=== PATIENT | male | born 1960 | race Caucasian/White ===

== ENCOUNTER 2019-12-09 16:04 | Outpatient (REF) | payer OTHER, SELFPAY | END 2019-12-09 16:05 | disposition home or self-care (01) | LOC: HO.LAB 16:04 | PROVIDERS: PCP Internal Medicine Geriatric Medicine; Visit Provider Internal Medicine | DX: Z20.828 Contact with and (suspected) exposure to other viral communicable diseases (principal) | CPT/HCPCS: 87635 ==

== ENCOUNTER 2020-02-23 12:04 | Outpatient (REF) | payer OTHER, SELFPAY | END 2020-02-23 12:05 | disposition home or self-care (01) | LOC: HO.HAP 12:04 | PROVIDERS: Visit Provider Internal Medicine Geriatric Medicine | DX: Z46.1 Encounter for fitting and adjustment of hearing aid (principal) | CPT/HCPCS: V5266 ==

== ENCOUNTER 2020-04-21 12:43 | Outpatient (REF) | payer OTHER, SELFPAY ==
--- NOTE | 2020-04-21 16:33 | MHC.AU.P13 ---
Adult Audiological Evaluation Date of Visit: 04/21/20 Mortician Investigator Used: Brought friend to help with Malaysian translation Reason for Appointment: Audiological re-evaluation due to concern for decreased hearing. Patient has a long-standing history of bilateral sensorineural hearing loss. He notes that he had cerumen removal completed two days ago at an ENT office, but still feels like he isn't hearing as well. He denies any changes to his medical history. [place] [facility] [place] Moderate to severe sensorineural hearing loss bilaterally. Ear History: Family History of Hearing Loss?: Yes Bothersome Tinnitus/Ringing/Noises in Ears: Both Ears Medical History: Medical History: Dizziness or Unsteadiness, High Blood Pressure Hearing Instrument History- Right Ear: Museum Host/Hostess: OtNetwork Hardware Resale Model: Opn 3 miniRITE Serial Number: [id number] Battery Size: 312 Repair Warranty: 11/11/2018 Loss and Damage Warranty: 11/11/2018 Dispensed By: [facility] Date of Fittin10/18/2016 Hearing Instrument History- Left Ear: Museum Host/Hostess: Oticon Model: Opn 3 miniRITE Serial Number: [id number] Battery Size: 312 Warranty: 11/11/2018 Loss and Damage Warranty: 11/11/2018 Dispensed By: [facility] Date of Fittin10/18/2018 Otoscopy: Right Ear: Unremarkable Left Ear: Unremarkable Tympanometry: Tympanometry performed due to: Patient reports sensation that ears are blocked/plugged. Right Ear: Normal Middle Ear System (Type A) Left Ear: Normal Middle Ear System (Type A) Hearing Evaluation: Transducer(s) Used: Insert Earphones, Bone Conduction Method: Conventional Audiometry Stimuli Used: Pure Tones Right Ear: Description of Hearing: Moderate sloping to severe sensorineural hearing loss from 125-8000 Hz. Left Ear: Description of Hearing: Moderate sloping to severe sensorineural hearing loss from 125-8000 Hz. Speech Recognition Threshold (SRT): Method Used: Recorded Lists Stimuli Used: Spondee Words Right Ear: 75 dBHL Left Ear: 75 dBHL Word Discrimination: Method: Recorded Lists Word Lists Used: Lista Bisil?bica (Malaysian) Right Ear: 88% at 95 dBHL Left Ear: 88% at 95 dBHL Comparison: Compared to the most recent evaluation: Hearing is stable. Recommendations: Audiological re-evaluation if changes are noted. Audiological re-evaluation in one year. Hearing aid maintenance performed today. Diagnosis: Primary Diagnosis: H90.3 Bilateral Sensorineural Hearing Loss Secondary Diagnosis: Services Performed: Comprehensive Audiological Evaluation (CPT 09959) Tympanometry (CPT 72538) Signature: Provider: Bernardo Rodriguez, CCC-A
== END 2020-04-21 12:44 | disposition home or self-care (01) ==
LOC: HO.SH 12:43
PROVIDERS: Visit Provider Internal Medicine Geriatric Medicine
DX: H90.3 Sensorineural hearing loss, bilateral (principal)
CPT/HCPCS: 92557; 92567; 92593; 99499; V5266

== ENCOUNTER 2020-05-17 10:15 | Outpatient (REF) | payer OTHER, SELFPAY ==
--- NOTE | ~2020-05-17 | US_ITS ---
EXAMINATION: US RETROPERITONEAL LIMITED (RENAL ONLY) CLINICAL INFORMATION: Nephrolithiasis. COMPARISON: Renal only ultrasound dated 10/12/2019. CT abdomen and pelvis without contrast dated 09/19/2019. TECHNIQUE: Real-time imaging of the kidneys. FINDINGS: RIGHT KIDNEY: 11.7 x 7.1 x 8.2 cm (SAG x AP x TRV). The kidney is normal in size, contour, and echogenicity. Renal cortical thickness is normal. There is are 2 stones in the lower pole measuring 3 mm and 4 mm. No focal parenchymal lesions or hydronephrosis. LEFT KIDNEY: 11.5 x 6.4 x 6.5 cm (SAG x AP x TRV). The kidney is normal in size, contour, and echogenicity. Renal cortical thickness is normal. There are 2 cysts in the lower pole, a 2 cm exophytic cyst and a 1.5 cm peripelvic cyst. No renal calculi or hydronephrosis. US/US renal BI IMPRESSION: Small right renal stones. Left renal cysts..
== END 2020-05-17 10:16 | disposition home or self-care (01) ==
LOC: HO.US 10:15
PROVIDERS: PCP Internal Medicine Geriatric Medicine; Visit Provider Urology
DX: N20.0 Calculus of kidney (principal)
CPT/HCPCS: 76775

== ENCOUNTER 2020-06-10 10:50 | Outpatient (REF) | payer OTHER, SELFPAY | END 2020-06-10 10:51 | disposition home or self-care (01) | LOC: HO.HAP 10:50 | PROVIDERS: Visit Provider Internal Medicine Geriatric Medicine | DX: Z46.1 Encounter for fitting and adjustment of hearing aid (principal); H90.3 Sensorineural hearing loss, bilateral | CPT/HCPCS: 92593; 99499 ==

== ENCOUNTER → 2020-06-14 12:45 | Outpatient (BNVA) | payer OTHER, SELFPAY | PROVIDERS: Visit Provider Urology | DX: N20.0 Calculus of kidney (principal); N28.1 Cyst of kidney, acquired; N32.0 Bladder-neck obstruction | CPT/HCPCS: 99212 ==

== ENCOUNTER 2020-09-30 13:45 | Outpatient (REF) | payer OTHER, SELFPAY | END 2020-09-30 13:46 | disposition home or self-care (01) | LOC: HO.HAP 13:45 | PROVIDERS: Visit Provider Internal Medicine Geriatric Medicine | DX: Z46.1 Encounter for fitting and adjustment of hearing aid (principal); H90.3 Sensorineural hearing loss, bilateral | CPT/HCPCS: V5266 ==

== ENCOUNTER 2020-11-29 13:50 | Outpatient (REF) | payer OTHER, SELFPAY ==
--- NOTE | 2020-11-29 15:03 | MHC.AU.AHA ---
Adult Audiological Evaluation Date of Visit: 11/29/20 911 Emergency Dispatcher Used: Mongolian- By Phone Reason for Appointment: Audiological re-evaluation to monitor the status of Oren's hearing loss. He has a known bilateral, sensorineural hearing loss and uses hearing aids binaurally. He reports that he has lost his right hearing aid, which is no longer under warranty. An updated hearing evaluation is required in order to pursue new hearing aids. Oren denies any significant changes to his hearing or medical history since his last visit. Previous Hearing Test Results: [facility] [place] - Moderately severe to severe sensorineural hearing loss bilaterally. Ear History: Family History of Hearing Loss?: Yes Bothersome Tinnitus/Ringing/Noises in Ears: Both Ears Medical History: Medical History: Dizziness or Unsteadiness, High Blood Pressure Hearing Instrument History- Right Ear: Stacking Machine Operator: Oticon Model: Opn 3 miniRITE Serial Number: [id number] Battery Size: 312 Repair Warranty: 11/11/2018 Loss and Damage Warranty: 11/11/2018 Dispensed By: [facility] Date of Fittin10/18/2016 Hearing Instrument History- Left Ear: Stacking Machine Operator: Oticon Model: Opn 3 miniRITE Serial Number: [id number] Battery Size: 312 Warranty: 11/11/2018 Loss and Damage Warranty: 11/11/2018 Dispensed By: [facility] Date of Fittin10/18/2018 Otoscopy: Right Ear: Unremarkable Left Ear: Unremarkable Tympanometry: Tympanometry performed due to: Right Ear: Could Not Obtain Seal Left Ear: Could Not Obtain Seal Hearing Evaluation: Transducer(s) Used: Circumaural Headphones, Bone Conduction Method: Conventional Audiometry Stimuli Used: Pure Tones Right Ear: Description of Hearing: Moderately-severe sloping to severe sensorineural hearing loss from 250-8000 Hz. Left Ear: Description of Hearing: Moderately-severe sloping to severe sensorineural hearing loss from 250-8000 Hz. Speech Recognition Threshold (SRT): Method Used: Recorded Lists Stimuli Used: Spondee Words Right Ear: 80 dBHL Left Ear: 75 dBHL Word Discrimination: Method: Recorded Lists Word Lists Used: NU-6 Right Ear: 88% at 95 dBHL Left Ear: 80% at 95 dBHL Comparison: Compared to the most recent evaluation: Hearing is stable. Recommendations: Audiological re-evaluation in one year. See Hearing Aid Evaluation report for more information. Updated amplification is recommended for both ears. Medical clearance for hearing aid use is being requested from his primary care physician. Prior authorization will be requested from his health insurance company once medical clearance is received. Diagnosis: Primary Diagnosis: H90.3 Bilateral Sensorineural Hearing Loss Services Performed: Comprehensive Audiological Evaluation (CPT 21672) Signature: Provider: Bernardo Rodriguez, CCC-A
--- NOTE | 2020-11-29 15:17 | MHC.AU.MED ---
Medical Clearance for Hearing Instrumentation Date: 11/29/20 Patient Name: Oren Hoover Date of : 1960 Referring Provider: Jason Herrera MD We have seen your patient on 11/29/20 and have determined that they are a candidate for amplification (See accompanying report). Specifically, they would benefit from: Hearing aid use in both ears There is a statute that addresses Medical Evaluation Requirements prior to fitting a patient with a hearing aid. According to [place] statute [facility] CMR:6.03(1), (a) General. Except as provided in 265 CMR 6.03(1)(b), a product inspection coordinator shall not sell a hearing aid unless the prospective user has presented to the product inspection coordinator a written statement signed by a licensed physician that states that the patient's hearing loss has been medically evaluated and the patient may be considered a candidate for a hearing aid. The medical evaluation must have taken place within the preceding six months. Please note: Due to the [place] Statute referenced above, we cannot accept a signature other than that of a licensed physician. HOT STICK WORKER and PA signatures cannot be accepted. I am in agreement with the above recommendation. There is no medical contraindication for hearing instrumentation. Physician Signature Date Physician Name (Printed)
--- NOTE | 2020-11-29 16:15 | MHC.AU.HAS ---
Hearing Aid Evaluation Date of Visit: 11/29/20 Program Aide Group Work Used: Sinhala- By Phone Historical Information: Description of Hearing: Moderately-severe to severe sensorineural hearing loss bilaterally. Current personal amplification information, if applicable: Oticon Opn 3 miniRITE Summary: Patient reports that he has lost the right hearing aid, which is no longer under warranty. Based on the degree of Oren's hearing loss, updated hearing aids for both ears are recommended. Oren depends on a reliable set of hearing aids in order to effectively communicate. Without hearing aids, he has significant difficulties communicating in all situations. I am recommending a new pair of hearing aids (for the right AND left), as the binaural interaction of the hearing aids provides significant benefit for speech discrimination. Given that Oren has a moderately-severe to severe sensorineural hearing loss, it is important that he have a matching set of hearing aids so he can access all the features and sound processing benefits that a pair of hearing aids offer. With a mis-matched set of hearing aids, he is likely to have more difficulty localizing sounds and understanding speech in difficult listening environments (i.e. in the presence of background noise). The new hearing aids also provide more powerful amplification, as the previous were at their programming limits. Hearing Aid Prescription: Based on the individual?s shared listening needs, communication environments, dexterity, desire for connectivity, and personal preferences, the following prescription for amplification has been made: Right ear: Air Brake Operator: Oticon Model: More 2 miniRITE-R Battery Size: Rechargeable Color: Chroma Beige Hydrochloric Acid Operator: Size 2 100 gain Type of Mold: Power dot compliance coordinator mold Left ear: Left ear prescription to be same as Right Hearing Aid above: Air Brake Operator: Oticon Model: More 2 miniRITE-R Battery Size: Rechargeable Color: Chroma Beige Hydrochloric Acid Operator: Size 2 100 gain Type of Mold: Power dot compliance coordinator mold Plan of Care: Earmold Impressions Taken. Prior authorization to be requested. Medical Clearance to be requested from PCP/ENT. Hearing aids will be ordered once approval is received. Hearing Instrument Fitting to be scheduled when materials arrive. Primary Diagnosis: H90.3 Bilateral Sensorineural Hearing Loss Signature: Provider: Bernardo Rodriguez, [facility]
== END 2020-11-29 13:51 | disposition home or self-care (01) ==
LOC: HO.SH 13:50
PROVIDERS: Visit Provider Internal Medicine Geriatric Medicine
DX: Z46.1 Encounter for fitting and adjustment of hearing aid (principal); H90.3 Sensorineural hearing loss, bilateral
CPT/HCPCS: 92557; 92591; 92592; V5275

== ENCOUNTER 2020-12-07 14:40 | Outpatient (REF) | payer OTHER, SELFPAY ==
--- NOTE | ~2020-12-07 | US_ITS ---
EXAMINATION: US RETROPERITONEAL LIMITED (RENAL ONLY) CLINICAL INFORMATION: Calculus of kidney. COMPARISON: Renal ultrasound 05/17/2020 and 10/12/2019. CT abdomen and pelvis 09/19/2019. TECHNIQUE: Real-time imaging of the kidneys. FINDINGS: RIGHT KIDNEY: 12.0 x 6.8 x 6.8 cm (SAG x AP x TRV). The kidney is normal in size, contour, and echogenicity. Renal cortical thickness is normal. No focal parenchymal lesions or hydronephrosis. There is an echogenic stone in the lower pole measuring 0.3 x 0.2 cm. Second echogenic stone seen before is not visualized at this time. No caliectasis. LEFT KIDNEY: 11.6 x 6.6 x 5.6 cm (SAG x AP x TRV). The kidney is normal in size, contour, and echogenicity. Renal cortical thickness is normal. No hydronephrosis. There is an echogenic stone midpole measuring 0.3 x 0.1 cm. There is no twinkle artifact. There is an exophytic cyst in the lower pole measuring 2.6 x 1.9 x 1.6 cm and in mid to lower pole measuring 2.3 x 1.3 x 1.9 cm. US/US renal BI IMPRESSION: Solitary renal calculi in each kidney without caliectasis. There are 2 anechoic simple cysts in left kidney. There is no hydronephrosis.
== END 2020-12-07 14:41 | disposition home or self-care (01) ==
LOC: HO.US 14:40
PROVIDERS: PCP Internal Medicine Geriatric Medicine; Visit Provider Urology
DX: N20.0 Calculus of kidney (principal)
CPT/HCPCS: 76775

== ENCOUNTER 2020-12-28 08:19 | Outpatient (REF) | payer OTHER, SELFPAY | END 2020-12-28 08:20 | disposition home or self-care (01) | LOC: HO.HAP 08:19 | PROVIDERS: Visit Provider Internal Medicine Geriatric Medicine | DX: Z46.1 Encounter for fitting and adjustment of hearing aid (principal); H90.3 Sensorineural hearing loss, bilateral | CPT/HCPCS: V5011; V5020; V5160; V5261; V5264 ==

== ENCOUNTER 2021-01-23 09:25 | Outpatient (REF) | payer OTHER, SELFPAY | END 2021-01-23 09:26 | disposition home or self-care (01) | LOC: HO.HAP 09:25 | PROVIDERS: Visit Provider Internal Medicine Geriatric Medicine | DX: Z13.89 Encounter for screening for other disorder (principal) ==

== ENCOUNTER 2021-05-17 15:49 | Outpatient (REF) | payer OTHER, SELFPAY ==
--- NOTE | ~2021-05-17 | XR_ITS ---
EXAMINATION: XR foot RT min 3V CLINICAL INFORMATION: Pain COMPARISON: None TECHNIQUE: 3 views of the foot XR/XR foot RT min 3V FINDINGS/IMPRESSION: No fracture or dislocation. Mild degenerative changes of the foot with degenerative spurring of the dorsal midfoot, plantar calcaneal spurring, and Achilles tendon enthesopathy. No cortical erosion. No joint effusion. Soft tissues are unremarkable.
== END 2021-05-17 15:50 | disposition home or self-care (01) ==
LOC: HO.XRAY 15:49
PROVIDERS: Absent Provider Internal Medicine Geriatric Medicine; PCP Internal Medicine Geriatric Medicine; Visit Provider Emergency Medicine
DX: M79.671 Pain in right foot (principal)
CPT/HCPCS: 73630

== ENCOUNTER 2021-07-25 08:52 | Outpatient (REF) | payer OTHER, SELFPAY ==
--- NOTE | ~2021-07-25 | XR_ITS ---
EXAMINATION: XR FOOT, RIGHT CLINICAL INFORMATION: Pain COMPARISON: Previous x-ray May 2021 TECHNIQUE: AP, lateral, and oblique views of the right foot. FINDINGS: Bone alignment is normal. No fracture or dislocation is seen. There are mild degenerative changes of the midfoot at the talar navicular and navicular cuneiform joints and small osteophytes. Joint spaces are otherwise normal. There are small calcaneal spurs. XR/XR foot RT min 3V IMPRESSION: Mild degenerative changes of the midfoot. Small calcaneal spurs.
[2021-07-25 09:27] LABS: MANUAL DIFF FLAG NO
[2021-07-25 09:47] LABS: Basophils Absolute Auto 0.1 X10*3/uL (0.0-0.2); Basophils Percent Auto 0.6 % (0-2); Eosinophils Absolute Auto 0.2 X10*3/uL (0.0-0.4); Eosinophils Percent Auto 2.8 % (0-4); Hemoglobin 14.5 g/dl (14.0-18.0); Imm Gran Abs Auto 0.03 X10*3/uL (0.00-0.03); Imm Gran Pct Auto 0.4 % (0.0-0.4); Lymphocytes Percent Auto 25.1 % (20-40); Mean Corpuscular HGB Conc 34.5 g/dl (31.0-36.0); Mean Corpuscular Hemoglobin 30.7 pg (27.0-33.0); Mean Corpuscular Volume 88.8 fL (80.0-98.0); Mean Platelet Volume 10.6 fL (9.4-12.4); Monocytes Absolute Auto 0.7 X10*3/uL (0.1-1.2); Monocytes Percent Auto 9.1 % (2-11); Platelet Count 196 X10*3/uL (160-400); Red Blood Count 4.73 X10*6/uL (4.60-5.80); Red Cell Distribution Width 12.8 % (11.0-16.0); White Blood Count 8.1 X10*3/uL (4.8-10.8)
[2021-07-25 10:33] LABS: Alanine Aminotransferase 20 U/L (0-40); Alkaline Phosphatase 82 U/L (39-117); Anion Gap 11 (12-20); Aspartate Amino Transferase 16 U/L (5-37); Bilirubin Total 0.7 mg/dL (0.0-1.0); Blood Urea Nitrogen 14 mg/dL (9-16); Calcium 9.3 mg/dL (8.4-10.2); Carbon Dioxide 26 mmol/L (22-29); Chloride 109 mmol/L (96-108); Cholesterol 192 mg/dL; Estimated Glomerular Filt Rate > 60; Glucose Random 104 mg/dL (60-115); HDL Cholesterol 33 mg/dL; LDL Cholesterol Calculated 84 mg/dl; Potassium 3.8 mmol/L (3.3-5.1); Sodium 142 mmol/L (135-145); Total Protein 7.1 g/dL (6.5-8.0); Triglycerides 378 mg/dL
[2021-07-25 10:42] LABS: Prostate Specific Antigen 1.34 ng/mL (<0.05-4.0)
== END 2021-07-25 08:53 | disposition home or self-care (01) ==
LOC: HO.XRAY 08:52
PROVIDERS: PCP Internal Medicine Geriatric Medicine; Visit Provider Internal Medicine Geriatric Medicine
DX: Z12.5 Encounter for screening for malignant neoplasm of prostate (principal); Z13.1 Encounter for screening for diabetes mellitus; M79.671 Pain in right foot; I10 Essential (primary) hypertension; Z79.899 Other long term (current) drug therapy
CPT/HCPCS: 36415; 73630; 80053; 80061; 84153; 85025

== ENCOUNTER 2022-09-10 14:26 | Outpatient (AMB) | payer MEDICARE, MEDICAID, SELFPAY ==
--- NOTE | 2022-09-10 14:28 | A.OFFVIS_ITS ---
Intake Intake Visit Reasons: BPH w Nocturia Intake Note: Patient is present for BPH w/Nocturia Urology Medications: none Blood Thinner: none PVR: 30mls Commercial Trailer Truck Driver Required: Yes Commercial Trailer Truck Driver Name: JENNIFER Accompanied by: Self / Same As Patient Allergies No Known Allergies [No Known Allergies*] Allergy (Verified 09/10/22 23:43) Medication List - Last Reconciled 09/10/22 by ZULEYKA Pantoja amlodipine 5 mg PO DAILY hydrochlorothiazide 12.5 mg PO DAILY ketoconazole 2% topical losartan 100 mg PO DAILY losartan-hydrochlorothiazide 100-12.5 mg 1 tab PO DAILY metoprolol succinate ER 25 mg PO DAILY pyridoxine (vitamin B6) 100 mg PO DAILY 90 days tadalafil (Cialis) 5 mg PO DAILY 90 days HPI HPI Comments History of Present Illness Details Oren is a very pleasant 62-year-old Estonian-speaking male patient of Dr. Herrera. He has a past medical history of hypertension, nephrolithiasis, and dyslipidemia. He presents to the office today for nocturia and changes to urinary stream. Of note, patient previously seen Dr. Coreas approximately 2 years ago for his longstanding history of nephrolithiasis. In discussion with the patient today he reports to be doing and feeling well. He reports having had recent physical with PCP and discussing increased episodes in nocturia up to 4 times per night. He reports being started on Flomax with PCP however has not found any improvement in urinary stream and or nocturia. When asked he denies urinary urgency, urinary frequency, incontinence, hematuria, dysuria, foul smelling urine, flank pain, fever, and or chills. In review of patient's chart it appears PSA 07/23--1.3. He discusses having had prostate biopsy in the past in [place] for abnormal BEATRICE. He reports prostate biopsy to have been negative. He also discusses with sounds like having a TURP versus cystoscopy hydrodistention in [place] as well. In office urinalysis results reviewed with the patient today. PVR 30 mL. BEATRICE offered however declined. [facility] Medical History HTN (hypertension) Hyperlipidemia Recurrent nephrolithiasis Review of Systems Const Reports as per HPI Eyes Reports no additional complaints ENT Reports no additional complaints Card Reports as per HPI Resp Reports no additional complaints GI Reports no additional complaints Reports as per HPI Musc Reports no additional complaints Neuro Reports no additional complaints Psych Reports no additional complaints Endo Reports no additional complaints Wagner/Lymph Reports no additional complaints Aller/Immun Reports no additional complaints Physical Exam Const General: cooperative, healthy appearing, comfortable, no acute distress, well developed, alert and awake Nutritional Appearance: overweight Orientation/consciousness: patient oriented x3 Limitations: no limitations HEENT Head: Yes normal to inspection, Yes normocephalic and Yes atraumatic Ears: hearing grossly normal bilaterally Eyes General: appearance normal, both eyes and all related structures Neck Neck: Yes normal visual inspection and Yes trachea midline Chest Chest palpation & inspection: normal inspection of the chest Resp Effort & Inspection: normal respiratory effort and able to speak in complete sentences Cardio Rate: regular rate GI Inspection: Yes normal to inspection Rectal Exam - Male: Yes deferred General: Yes no CVA tenderness Back/Spine/Pelvis Back: no CVA tenderness Skin General skin exam: no rashes or lesions noted Neuro General: patient oriented x3 Extrem General: Yes normal to inspection Psych Appearance: grossly normal and well kempt Mental Status: mental status grossly normal Speech and movement: Normal speech and movement present and Clear speech present Affect: normal affect Attitude: cooperative Thought process: Normal thought process present Thought content: Normal thought content present Insight: Good insight present (Psych) Judgement: Good judgement present (Psych) Office Procedures Post Void Residual Post Residual Void Post Void Residual (PVR): 30 [id number] Void Residual by ultrasound Results AMB Urinalysis, Automated UA Leukoctes 0 Bella/uL Last Edit by [employer] on 09/10/22 14:51 UA Nitrite Negative Last Edit by [employer] on 09/10/22 14:51 UA Urobilinogen 0.2 mg/dL Last Edit by [employer] on 09/10/22 14:51 UA Protein 15 mg/dL Last Edit by [employer] on 09/10/22 14:51 UA pH 7.5 Last Edit by [employer] on 09/10/22 14:51 UA Blood 0 Malachi/uL Last Edit by [employer] on 09/10/22 14:51 UA Specific [place] 1.015 Last Edit by [employer] on 09/10/22 14:51 UA Ketone Negative Last Edit by Jordi Armendariz on 09/10/22 14:51 UA Bilirubin 0 mg/dL Last Edit by Jordi Armendariz on 09/10/22 14:51 UA Glucose 0 mg/dL Last Edit by Jordi Armendariz on 09/10/22 14:51 Results Reviewed Results Reviewed: Laboratory Last Values Urine pH (Auto) 7.5 09/10/22 14:40 Specific [place] (Auto) 1.015 09/10/22 14:40 Urine Protein (Auto) 15 mg/dL 09/10/22 14:40 Glucose (UA)(Auto) 0 mg/dL 09/10/22 14:40 Urine Ketones (Auto) Negative 09/10/22 14:40 Urine Blood (Auto) 0 Malachi/uL 09/10/22 14:40 Urine Nitrite (Auto) Negative 09/10/22 14:40 Urine Bilirubin (Auto) 0 mg/dL 09/10/22 14:40 Urine Urobilinogen (Auto) 0.2 mg/dL 09/10/22 14:40 Leukocyte Esterase (Auto) 0 Bella/uL 09/10/22 14:40 Assessment & Plan Assessment & Plan (1) Recurrent nephrolithiasis: Code(s): N20.0 - Calculus of kidney (2) Lower urinary tract symptoms: Code(s): R39.9 - Unspecified symptoms and signs involving the genitourinary system Plan In office urinalysis results reviewed with the patient today; as noted above. PVR 30 mL. Will obtain retroperitoneal ultrasound for further assessment evaluation. Will obtain PSA for further assessment evaluation. BEATRICE offered however decline. Discussed at length potential causes for nocturia; discussed possible workup for sleep apnea as well as limiting fluids 3-4 hours prior to bed to assist with decreasing episodes of nocturia. Discussed near future in office cystoscopy if symptoms worsen and or persist Start Cialis 5 mg daily as discussed and prescribed. Follow-up in 3 months with imaging and lab to be completed prior; or sooner with any issues, concerns, and or questions. Orders: Orders US retroperitoneal comp 09/10/22 N20.0 - Calculus of kidney, R39.9 - Unspecified symptoms and signs involving the genitourinary system Prostate Specific Antigen 09/10/22 N40.0 - Benign prostatic hyperplasia without lower urinary tract symptoms AMB Urinalysis Automated 09/10/22 Z13.9 - Encounter for screening, unspecified AMB Post Void Residual by ultrasound 09/10/22 N32.0 - Bladder-neck obstruction Medications: New tadalafil (Cialis) [id number] [facility] [place][NOTE 3] [id number] Member [id number] 5 mg PO DAILY 90 tabs 0RF 90 days Patient Instructions: The patient had an opportunity to ask questions regarding the treatment plan. All questions were answered. Physical exam, labs, and imaging were discussed and reviewed in detail. As well as risks, benefits, and discussion of treatment choices. No major barriers to understanding were identified. The patient expressed understanding and agreement with the above treatment plan. The patient was made aware they should contact our office by phone for worsening of their current condition, the appearance of new symptoms, or with any questions or concerns. Compliance is encouraged with any medications and follow up testing that is ordered. It is a privilege to be allowed the opportunity to participate in? your urological care.? Again, if you have any questions or concerns If you have any questions or concerns please do not hesitate to contact me. The office is [phone]. This note is constructed using voice recognition software. While every effort has been made to ensure accuracy house wirer helper errors may have been included. Yours sincerely, ZULEYKA Pantoja Coding Level of Care Code Est Pt Level 4 (35423) Diagnoses Recurrent nephrolithiasis N20.0 Lower urinary tract symptoms R39.9 CPT Codes Post Residual Void - PVR CPT Code: 53815-Acpf Void Residual by ultrasound ([id number])
== END 2022-09-10 15:05 | disposition home or self-care (01) ==
PROVIDERS: PCP Internal Medicine Geriatric Medicine; Visit Provider Nurse Practitioner Family
DX: N20.0 Calculus of kidney (principal); R39.9 Unspecified symptoms and signs involving the genitourinary system
CPT/HCPCS: 99214

== ENCOUNTER → 2022-09-10 14:26 | Outpatient (BNVA) | payer MEDICARE, SELFPAY | PROVIDERS: PCP Internal Medicine Geriatric Medicine; Visit Provider Nurse Practitioner Family | DX: N20.0 Calculus of kidney (principal); R39.9 Unspecified symptoms and signs involving the genitourinary system | CPT/HCPCS: 51798; 99212 ==

== ENCOUNTER 2022-11-07 10:43 | Outpatient (REF) | payer MEDICARE, SELFPAY ==
[2022-11-07 12:53] LABS: Anion Gap 13 (12-20); Blood Urea Nitrogen 21 mg/dL (9-16); Calcium 9.8 mg/dL (8.4-10.2); Carbon Dioxide 26 mmol/L (22-29); Chloride 109 mmol/L (96-108); Estimated Glomerular Filt Rate > 60; Glucose Random 91 mg/dL (60-115); Potassium 3.7 mmol/L (3.3-5.1); Sodium 144 mmol/L (135-145)
== END 2022-11-07 10:44 | disposition home or self-care (01) ==
LOC: HO.HHCL 10:43
PROVIDERS: Visit Provider Internal Medicine Geriatric Medicine
DX: I10 Essential (primary) hypertension (principal)
CPT/HCPCS: 36415; 80048

== ENCOUNTER 2022-11-30 10:20 | Outpatient (REF) | payer MEDICARE, SELFPAY ==
[2022-11-30 12:59] LABS: Prostate Specific Antigen 2.18 ng/mL (<0.05-4.0)
== END 2022-11-30 10:21 | disposition home or self-care (01) ==
LOC: HO.LAB 10:20
PROVIDERS: PCP Internal Medicine Geriatric Medicine; Visit Provider Nurse Practitioner Family
DX: N40.0 Benign prostatic hyperplasia without lower urinary tract symptoms (principal); Z12.5 Encounter for screening for malignant neoplasm of prostate
CPT/HCPCS: 36415; 84153

== ENCOUNTER 2022-12-04 12:40 | Outpatient (REF) | payer MEDICARE, MEDICAID, SELFPAY | END 2022-12-04 12:41 | disposition home or self-care (01) | LOC: HO.US 12:40 | PROVIDERS: PCP Internal Medicine Geriatric Medicine; Visit Provider Nurse Practitioner Family | DX: R39.9 Unspecified symptoms and signs involving the genitourinary system (principal); N20.0 Calculus of kidney | CPT/HCPCS: 76770 ==

== ENCOUNTER 2022-12-11 14:56 | Outpatient (AMB) | payer MEDICARE, MEDICAID, SELFPAY ==
--- NOTE | 2022-12-11 15:37 | MHC.OFFVIS ---
Intake Intake Visit Reasons: 3m/US/labs(set) Intake Note: Patient is present for follow up BPH w/Nocturia Urology Medications: tadalafil, vitamin b6 Blood Thinner: none PVR: 28ml's Etched Circuit Processor Required: Yes Etched Circuit Processor Name: Umu Accompanied by: Self / Same As Patient Allergies No Known Allergies [No Known Allergies*] Allergy (Verified 12/11/22 16:12) Medication List - Last Reconciled 12/11/22 by Poly Torres [facility]- amlodipine 5 mg PO DAILY atorvastatin 20 mg PO DAILY hydrochlorothiazide 12.5 mg PO DAILY ketoconazole 2% topical losartan 100 mg PO DAILY losartan-hydrochlorothiazide 100-12.5 mg 1 tab PO DAILY metoprolol succinate ER 25 mg PO DAILY pyridoxine (vitamin B6) 100 mg PO DAILY 90 days tadalafil (Cialis) 5 mg PO DAILY 90 days tamsulosin 0.4 mg PO DAILY HPI HPI Comments History of Present Illness Details Oren is a very pleasant 62-year-old Monegasque-speaking male patient of Dr. Herrera. He has a past medical history of hypertension, nephrolithiasis, and dyslipidemia. He presents to the office today for a follow up of his nocturia and changes to urinary stream. Of note, patient previously seen approximately 3 months ago at which time a retroperitoneal ultrasound was ordered, PSA, and the patient was started on low-dose Cialis. In discussion with the patient today he reports to be doing and feeling well. He reports significant improvement in erectile dysfunction since starting low-dose Cialis. However, he continues to report episodes of nocturia. Recent retroperitoneal ultrasound results reviewed with the patient today. Right kidney with no calculi, lesions, and or hydronephrosis noted. Left kidney with no calculi or hydronephrosis. At the upper pole laterally, a 9 mm benign, simple cyst is seen. At the lower pole, 3.3 x 2.2 cm benign, simple cysts are seen. These require no imaging follow-up per radiology report. The bladder is well distended and normal. Bilateral ureteral jets are demonstrated. Pre void bladder volume is approximately 175 mL. Postvoid bladder volume is approximately 0 mL. Prostate measures approximately 17 mL with noted core central prostate calcifications. PSAs are as follows: 07/23--1.3 and 11/24--2.2. Patient previously trialed Flomax however did not fine any improvement in urinary stream or episodes of nocturia. He discusses having had prostate biopsy in the past in [place] for abnormal BEATRICE. He reports prostate biopsy to have been negative. He also discusses what sounds like having a TURP versus cystoscopy hydrodistention in [place] as well. In office urinalysis results reviewed with the patient today. PVR 28 mL. Patient otherwise denies urinary urgency, urinary frequency, incontinence, hematuria, dysuria, foul smelling urine, flank pain, fever, and or chills. [facility] Medical History HTN (hypertension) Hyperlipidemia Recurrent nephrolithiasis Review of Systems Const Reports as per HPI Eyes Reports no additional complaints ENT Reports no additional complaints Card Reports as per HPI Resp Reports no additional complaints GI Reports no additional complaints Reports as per HPI Musc Reports no additional complaints Neuro Reports no additional complaints Psych Reports no additional complaints Endo Reports no additional complaints Wagner/Lymph Reports no additional complaints Aller/Immun Reports no additional complaints Physical Exam Const General: cooperative, healthy appearing, comfortable, no acute distress, well developed, alert and awake Nutritional Appearance: overweight Orientation/consciousness: patient oriented x3 Limitations: no limitations HEENT Head: Yes normal to inspection, Yes normocephalic and Yes atraumatic Ears: hearing grossly normal bilaterally Eyes General: appearance normal, both eyes and all related structures Neck Neck: Yes normal visual inspection and Yes trachea midline Chest Chest palpation & inspection: normal inspection of the chest Resp Effort & Inspection: normal respiratory effort and able to speak in complete sentences Cardio Rate: regular rate GI Inspection: Yes normal to inspection Rectal Exam - Male: Yes deferred General: Yes no CVA tenderness Back/Spine/Pelvis Back: no CVA tenderness Skin General skin exam: no rashes or lesions noted Neuro General: patient oriented x3 Extrem General: Yes normal to inspection Psych Appearance: grossly normal and well kempt Mental Status: mental status grossly normal Speech and movement: Normal speech and movement present and Clear speech present Affect: normal affect Attitude: cooperative Thought process: Normal thought process present Thought content: Normal thought content present Insight: Good insight present (Psych) Judgement: Good judgement present (Psych) Office Procedures Post Void Residual Post Residual Void Post Void Residual (PVR): 28 81247-Ocat Void Residual by ultrasound Results AMB Urinalysis, Automated UA Leukoctes 0 Bella/uL Last Edit by MySiteAppsuha Armendariz on 12/11/22 15:59 UA Nitrite Negative Last Edit by MySiteAppsuha [email or web address] on 12/11/22 15:59 UA Urobilinogen 0.2 mg/dL Last Edit by MySiteAppsuha Xiao on 12/11/22 15:59 UA Protein 0 mg/dL Last Edit by MySiteAppsuha [email or web address] on 12/11/22 15:59 UA pH 6.0 Last Edit by [email or web address] on 12/11/22 15:59 UA Blood 0 Malachi/uL Last Edit by [email or web address] on 12/11/22 15:59 UA Specific [place] 1.020 Last Edit by [email or web address] on 12/11/22 15:59 UA Ketone Negative Last Edit by [email or web address] on 12/11/22 15:59 UA Bilirubin 0 mg/dL Last Edit by [email or web address] on 12/11/22 15:59 UA Glucose 0 mg/dL Last Edit by [email or web address] on 12/11/22 15:59 Results Reviewed Results Reviewed: Laboratory Last Values Urine pH (Auto) 6.0 12/11/22 15:45 Specific [place] (Auto) 1.020 12/11/22 15:45 Urine Protein (Auto) 0 mg/dL 12/11/22 15:45 Glucose (UA)(Auto) 0 mg/dL 12/11/22 15:45 Urine Ketones (Auto) Negative 12/11/22 15:45 Urine Blood (Auto) 0 Malachi/uL 12/11/22 15:45 Urine Nitrite (Auto) Negative 12/11/22 15:45 Urine Bilirubin (Auto) 0 mg/dL 12/11/22 15:45 Urine Urobilinogen (Auto) 0.2 mg/dL 12/11/22 15:45 Leukocyte Esterase (Auto) 0 Bella/uL 12/11/22 15:45 Date of Service: 12/04/22 EXAMINATION: US RETROPERITONEAL COMPLETE (RENAL) FINDINGS: RIGHT KIDNEY: 11.3 x 6.9 x 6.4 cm (SAG x AP x TRV). The kidney is normal in size, contour, and echogenicity. Renal cortical thickness is normal. No calculi or focal parenchymal lesions. No hydronephrosis. LEFT KIDNEY: 12.1 x 6.8 x 6.1 cm (SAG x AP x TRV). The kidney is normal in size, contour, and echogenicity. Renal cortical thickness is normal. No renal calculi or hydronephrosis. At the upper pole laterally, a 9 mm benign, simple cyst is seen. At the lower pole, 3.3 x 2.2 cm benign, simple cysts are seen. These require no imaging follow-up. BLADDER: Well distended and normal. Bilateral ureteral jets are demonstrated. Prevoid bladder volume is 175 mL. Postvoid bladder volume is 2 mL. Other: Prostate dimensions are 3.4 x 3.1 x 3.1 cm (volume 17.2 mL). Her coarse central prostate calcifications. IMPRESSION: Unremarkable examination, without nephrolithiasis or urinary obstruction noted. Assessment & Plan Assessment & Plan (1) Lower urinary tract symptoms: Code(s): R39.9 - Unspecified symptoms and signs involving the genitourinary system (2) Renal cyst: Code(s): N28.1 - Cyst of kidney, acquired (3) Nocturia: Code(s): R35.1 - Nocturia (4) Erectile dysfunction: Code(s): N52.9 - Male erectile dysfunction, unspecified Plan In office urinalysis results reviewed with the patient today; as noted above. PVR 28 mL. Continue Cialis as patient reports significant improvement in symptoms of erectile dysfunction. Start terazosin 5 mg at bedtime as discussed and prescribed. Recent retroperitoneal and PSA results reviewed with the patient today; as noted above. Discussed bladder triggers/irritants. Discussed avoiding fluids 3-4 hours prior to bed to assist with decreasing episodes of nocturia. Will refer to sleep for home sleep study for further assessment evaluation of question sleep apnea Follow-up in 6 weeks with PVR; or sooner with any issues, concerns, and or questions. Orders: Orders AMB Post Void Residual by ultrasound Today R39.9 - Unspecified symptoms and signs involving the genitourinary system RT home sleep study Today R06.83 - Snoring, R35.1 - Nocturia, R53.83 - Other fatigue AMB Urinalysis Automated Today Z13.9 - Encounter for screening, unspecified Medications: New terazosin 5 mg PO BEDTIME 30 days 30 caps 1RF N40.1 - Benign prostatic hyperplasia with lower urinary tract symptoms, R35.0 - Frequency of micturition Refilled tadalafil (Cialis) [id number] [facility] [id number] Member [id number] 5 mg PO DAILY 90 days 90 tabs 3RF Patient Instructions: The patient had an opportunity to ask questions regarding the treatment plan. All questions were answered. Physical exam, labs, and imaging were discussed and reviewed in detail. As well as risks, benefits, and discussion of treatment choices. No major barriers to understanding were identified. The patient expressed understanding and agreement with the above treatment plan. The patient was made aware they should contact our office by phone for worsening of their current condition, the appearance of new symptoms, or with any questions or concerns. Compliance is encouraged with any medications and follow up testing that is ordered. It is a privilege to be allowed the opportunity to participate in? your urological care.? Again, if you have any questions or concerns If you have any questions or concerns please do not hesitate to contact me. The office is [phone]. This note is constructed using voice recognition software. While every effort has been made to ensure accuracy lumber carrier errors may have been included. Yours sincerely, ZULEYKA Pantoja Coding Level of Care Code Est Pt Level 4 (50732) Diagnoses Lower urinary tract symptoms R39.9 Renal cyst N28.1 Nocturia R35.1 Erectile dysfunction N52.9 CPT Codes Post Residual Void - PVR CPT Code: 07935-Qcmq Void Residual by ultrasound ([id number])
== END 2022-12-11 16:11 | disposition home or self-care (01) ==
PROVIDERS: PCP Internal Medicine Geriatric Medicine; Visit Provider Nurse Practitioner Family
DX: Z13.9 Encounter for screening, unspecified (principal)
CPT/HCPCS: 99214

== ENCOUNTER → 2022-12-11 14:56 | Outpatient (BNVA) | payer MEDICARE, MEDICAID, SELFPAY | PROVIDERS: PCP Internal Medicine Geriatric Medicine; Visit Provider Nurse Practitioner Family | DX: R33.9 Retention of urine, unspecified (principal); R35.1 Nocturia; N28.1 Cyst of kidney, acquired; N52.9 Male erectile dysfunction, unspecified | CPT/HCPCS: 51798; 81003; 99212 ==

== ENCOUNTER 2022-12-25 13:36 | Outpatient (REF) | payer MEDICARE, MEDICAID, SELFPAY | END 2022-12-25 13:37 | disposition home or self-care (01) | LOC: HO.SH 13:36 | PROVIDERS: Visit Provider Internal Medicine Geriatric Medicine | DX: Z01.118 Encounter for examination of ears and hearing with other abnormal findings (principal); H90.3 Sensorineural hearing loss, bilateral | CPT/HCPCS: 92557 ==

== ENCOUNTER 2023-01-21 14:36 | Outpatient (AMB) | payer MEDICARE, MEDICAID, SELFPAY ==
--- NOTE | 2023-01-21 14:39 | A.OFFVIS_ITS ---
Intake Intake Visit Reasons: 6w follow up Intake Note: Patient is present for follow up BPH w/Nocturia Urology Medications: tadalafil, vitamin b6, terazosin Blood Thinner: none PVR: 0ml's Clinical Documentation Spec Required: Yes Clinical Documentation Spec Language: Public Records Officer Name: RUSTY ALLEN-PAULOI Accompanied by: Self / Same As Patient Allergies No Known Allergies [No Known Allergies*] Allergy (Verified 01/21/23 21:26) Medication List - Last Reconciled 01/21/23 by EVELIN Pantoja- amlodipine 5 mg PO DAILY atorvastatin 20 mg PO DAILY hydrochlorothiazide 12.5 mg PO DAILY ketoconazole 2% topical losartan 100 mg PO DAILY losartan-hydrochlorothiazide 100-12.5 mg 1 tab PO DAILY metoprolol succinate ER 25 mg PO DAILY pyridoxine (vitamin B6) 100 mg PO DAILY 90 days tadalafil (Cialis) 5 mg PO DAILY 90 days terazosin 10 mg (2 x 5 mg) PO BEDTIME 30 days HPI HPI Comments History of Present Illness Details Oren is a very pleasant 62-year-old Ukrainian-speaking male patient of Dr. Herrera. He has a past medical history of hypertension, nephrolithiasis, and dyslipidemia. He presents to the office today for a follow up of his nocturia, changes to urinary stream and ED. in discussion with the patient today reports to be doing and feeling well. He reports noting improvement in erectile dysfunction with low-dose 5 mg of Cialis daily. However, he reports no im provement in nocturia with 5 mg of terazosin. Previous workup has included a retroperitoneal ultrasound noting right kidney with no calculi, lesions, and or hydronephrosis noted. Left kidney with no calculi or hydronephrosis. At the upper pole laterally, a 9 mm benign, simple cyst is seen. At the lower pole, 3.3 x 2.2 cm benign, simple cysts are seen. These require no imaging follow-up per radiology report. The bladder is well distended and normal. Bilateral ureteral jets are demonstrated. Pre void bladder volume is approximately 175 mL. Postvoid bladder volume is approximately 0 mL. Prostate measures approximately 17 mL with noted core central prostate calcifications. PSAs are as follows: 07/23--1.3 and 11/24--2.2. Patient previously trialed Flomax however did not fine any improvement in urinary stream or episodes of nocturia. He discusses having had prostate biopsy in the past in [place] for abnormal BEATRICE. He reports prostate biopsy to have been negative. He also discusses what sounds like having a TURP versus cystoscopy hydrodistention in [place] as well. In office urinalysis results reviewed with the patient today. PVR 0 mL. Patient otherwise denies urinary urgency, urinary frequency, incontinence, hematuria, dysuria, foul smelling urine, flank pain, fever, and or chills. [facility] Medical History HTN (hypertension) Hyperlipidemia Recurrent nephrolithiasis Review of Systems Const Reports as per HPI Eyes Reports no additional complaints ENT Reports no additional complaints Card Reports as per HPI Resp Reports no additional complaints GI Reports no additional complaints Reports as per HPI Musc Reports no additional complaints Neuro Reports no additional complaints Psych Reports no additional complaints Endo Reports no additional complaints Wagner/Lymph Reports no additional complaints Aller/Immun Reports no additional complaints Physical Exam Const General: cooperative, healthy appearing, comfortable, no acute distress, well developed, alert and awake Nutritional Appearance: overweight Orientation/consciousness: patient oriented x3 Limitations: no limitations HEENT Head: Yes normal to inspection, Yes normocephalic and Yes atraumatic Ears: hearing grossly normal bilaterally Eyes General: appearance normal, both eyes and all related structures Neck Neck: Yes normal visual inspection and Yes trachea midline Chest Chest palpation & inspection: normal inspection of the chest Resp Effort & Inspection: normal respiratory effort and able to speak in complete sentences Cardio Rate: regular rate GI Inspection: Yes normal to inspection Rectal Exam - Male: Yes deferred General: Yes no CVA tenderness Back/Spine/Pelvis Back: no CVA tenderness Skin General skin exam: no rashes or lesions noted Neuro General: patient oriented x3 Extrem General: Yes normal to inspection Psych Appearance: grossly normal and well kempt Mental Status: mental status grossly normal Speech and movement: Normal speech and movement present and Clear speech present Affect: normal affect Attitude: cooperative Thought process: Normal thought process present Thought content: Normal thought content present Insight: Good insight present (Psych) Judgement: Good judgement present (Psych) Office Procedures Post Void Residual Post Residual Void Post Void Residual (PVR): 0 76140-Cxal Void Residual by ultrasound Results AMB Urinalysis, Automated UA Leukoctes 70 Bella/uL Last Edit by Andresyce Kala on 01/21/23 15:05 UA Nitrite Negative Last Edit by Andresyce Bress on 01/21/23 15:05 UA Urobilinogen 0.2 mg/dL Last Edit by Jordi Armendariz on 01/21/23 15:05 UA Protein 15 mg/dL Last Edit by Stephe Ninoskass on 01/21/23 15:05 UA pH 5.5 Last Edit by Stephe Kala on 01/21/23 15:05 UA Blood 0 Malachi/uL Last Edit by Flare Codeyce Bress on 01/21/23 15:05 UA Specific [place] 1.030 Last Edit by [employer]ee Call Britannialorena on 01/21/23 15:05 UA Ketone Negative Last Edit by Flare Codezach Armendariz on 01/21/23 15:05 UA Bilirubin 0 mg/dL Last Edit by Jordi Armendariz on 01/21/23 15:05 UA Glucose 0 mg/dL Last Edit by Flare Codezach Armendariz on 01/21/23 15:05 Results Reviewed Results Reviewed: Laboratory Last Values Urine pH (Auto) 5.5 01/21/23 15:03 Specific [place] (Auto) 1.030 01/21/23 15:03 Urine Protein (Auto) 15 mg/dL 01/21/23 15:03 Glucose (UA)(Auto) 0 mg/dL 01/21/23 15:03 Urine Ketones (Auto) Negative 01/21/23 15:03 Urine Blood (Auto) 0 Malachi/uL 01/21/23 15:03 Urine Nitrite (Auto) Negative 01/21/23 15:03 Urine Bilirubin (Auto) 0 mg/dL 01/21/23 15:03 Urine Urobilinogen (Auto) 0.2 mg/dL 01/21/23 15:03 Leukocyte Esterase (Auto) 70 Bella/uL 01/21/23 15:03 Assessment & Plan Assessment & Plan (1) Erectile dysfunction: Code(s): N52.9 - Male erectile dysfunction, unspecified (2) Nocturia: Code(s): R35.1 - Nocturia (3) Renal cyst: Code(s): N28.1 - Cyst of kidney, acquired (4) Lower urinary tract symptoms: Code(s): R39.9 - Unspecified symptoms and signs involving the genitourinary system Plan In office urinalysis results reviewed with the patient today; as noted above. PVR 0 mL. Will increase terazosin to 10 mg at bedtime. Discussed bladder triggers/irritants. Discussed importance of limiting fluids 3-4 hours prior to bed to decrease episodes of nocturia Continue 5 mg of Cialis as patient reports improvement in erectile dysfunction Patient with multiple previous urological procedures Discussed in office cystoscopy for further assessment evaluation. Follow-up in office cystoscopy; or sooner with any issues, concerns, and or questions. Orders: Orders AMB Urinalysis Automated Today Z13.9 - Encounter for screening, unspecified AMB Post Void Residual by ultrasound Today R35.1 - Nocturia Medications: Changed From terazosin 5 mg PO BEDTIME 30 days 30 caps 1RF N40.1 - Benign prostatic hyperplasia with lower urinary tract symptoms, R35.0 - Frequency of micturition To terazosin 10 mg (2 x 5 mg) PO BEDTIME 60 caps 1RF 30 days N40.1 - Benign prostatic hyperplasia with lower urinary tract symptoms, R35.0 - Frequency of micturition Patient Instructions: The patient had an opportunity to ask questions regarding the treatment plan. All questions were answered. Physical exam, labs, and imaging were discussed and reviewed in detail. As well as risks, benefits, and discussion of treatment choices. No major barriers to understanding were identified. The patient expressed understanding and agreement with the above treatment plan. The patient was made aware they should contact our office by phone for worsening of their current condition, the appearance of new symptoms, or with any questions or concerns. Compliance is encouraged with any medications and follow up testing that is ordered. It is a privilege to be allowed the opportunity to participate in? your urological care.? Again, if you have any questions or concerns If you have any questions or concerns please do not hesitate to contact me. The office is [phone]. This note is constructed using voice recognition software. While every effort has been made to ensure accuracy mdm developer errors may have been included. Yours sincerely, ZULEYKA Pantoja Coding Level of Care Code Est Pt Level 3 (51115) Diagnoses Erectile dysfunction N52.9 Nocturia R35.1 Renal cyst N28.1 Lower urinary tract symptoms R39.9 CPT Codes Post Residual Void - PVR CPT Code: 84492-Qkjo Void Residual by ultrasound ([id number])
== END 2023-01-21 15:30 | disposition home or self-care (01) ==
PROVIDERS: PCP Internal Medicine Geriatric Medicine; Visit Provider Nurse Practitioner Family
DX: N52.9 Male erectile dysfunction, unspecified (principal); R35.1 Nocturia; N28.1 Cyst of kidney, acquired; R39.9 Unspecified symptoms and signs involving the genitourinary system
CPT/HCPCS: 99213

== ENCOUNTER → 2023-01-21 14:36 | Outpatient (BNVA) | payer MEDICARE, MEDICAID, SELFPAY | PROVIDERS: PCP Internal Medicine Geriatric Medicine; Visit Provider Nurse Practitioner Family | DX: R35.1 Nocturia (principal); N20.0 Calculus of kidney; N28.1 Cyst of kidney, acquired; N52.9 Male erectile dysfunction, unspecified; R39.9 Unspecified symptoms and signs involving the genitourinary system; E78.5 Hyperlipidemia, unspecified | CPT/HCPCS: 51798; 81003; 99212 ==

== ENCOUNTER → 2023-01-22 14:55 | Outpatient (REF) | payer MEDICARE, MEDICAID, SELFPAY | LOC: HO.SL 14:55 | PROVIDERS: PCP Internal Medicine Geriatric Medicine; Visit Provider Nurse Practitioner Family | DX: R35.1 Nocturia (principal); R06.83 Snoring; R53.83 Other fatigue; G47.33 Obstructive sleep apnea (adult) (pediatric) | CPT/HCPCS: 95806 ==

== ENCOUNTER → 2023-01-22 15:15 | Outpatient (BNV) | payer MEDICARE, MEDICAID, SELFPAY | PROVIDERS: PCP Internal Medicine Geriatric Medicine; Visit Provider Internal Medicine | DX: G47.33 Obstructive sleep apnea (adult) (pediatric) (principal) | CPT/HCPCS: 95806 ==

== ENCOUNTER 2023-03-27 14:25 | Outpatient (AMB) | payer MEDICARE, MEDICAID, SELFPAY ==
--- NOTE | 2023-03-27 14:53 | MHC.OFFVIS ---
Intake Intake Visit Reasons: cysto Intake Note: Patient is Present for Cystoscopy Urology Med: Terazosin, Tadalafil, Vitamin B6( Patient states he is no longer on either medications) Antibiotic Allergy: None Blood Thinner: None URO- G Disposable Cystoscope lot: [id number] exp: 08/15/2024 Allergies No Known Allergies [No Known Allergies*] Allergy (Verified 03/27/23 14:58) Medication List - Last Reconciled 03/27/23 by Kwesi Coreas MD amlodipine 5 mg PO DAILY atorvastatin 20 mg PO DAILY hydrochlorothiazide 12.5 mg PO DAILY ketoconazole 2% topical losartan 100 mg PO DAILY losartan-hydrochlorothiazide 100-12.5 mg 1 tab PO DAILY metoprolol succinate ER 25 mg PO DAILY pyridoxine (vitamin B6) 100 mg PO DAILY 90 days tadalafil (Cialis) 5 mg PO DAILY 90 days terazosin 10 mg (2 x 5 mg) PO BEDTIME 30 days HPI HPI Comments History of Present Illness Details Oren is a very pleasant male. He is a patient of Dr Herrera. He is seen for the following urologic conditions. - lower urinary tract symptoms - nephrolithiasis Kittitian translation provided in office by qualified medical record transcriber Here for cystoscopy today Findings include hemorrhagic injection throughout prostate consistent with possible interstitial cystitis Will increase tadalafil to 10 mg for bladder stability May benefit from prostate incision Lower urinary tract symptoms Primarily nocturia with weakness of stream Minimal benefit from 5 mg terazosin Prior medications include Flomax with minimal improvement Describes prior procedure in [place] with biopsy for abnormal BEATRICE and question of hydrodistention versus TURP Renal bladder ultrasound notes prostate measures 17 cc with calcifications PSA 11/24 2.2 Erectile dysfunction Improved with low-dose Cialis daily Nephrolithiasis/Urolithiasis: Discussed current ultrasound Keep on vitamin B6 and keep up water intake Translation done office Nine review in 6 months. They are here for further evaluation of nephrolithiasis. Associated symptoms include Fever No Nausea No Chills No Hematuria No The patient previously had kidney stones whose composition w unknown. Prior treatment(s) include observation. Prior imaging includes 09/19/19 , a CT (computed tomography) scan of the abdomen/pelvis (stone protocol) - 5 mm stone at right UPJ plus two calcific foci 10/21 , a renal ultrasound, showing no evidence of stones, bilateral 1 cm cyst - 4/21 left renal ultrasound 2 small stones on right bilateral renal cyst Current therapeutic plan will be to continue with imaging surveillance. [facility] Medical History HTN (hypertension) Hyperlipidemia Recurrent nephrolithiasis Review of Systems Const Denies chills and Denies fever(s) Card Reports no additional complaints and Denies syncope Resp Denies cough GI Denies abdominal pain and Denies heartburn Reports as per HPI and Denies change in libido Neuro Denies syncope Psych Denies change in libido Endo Denies change in libido Physical Exam Const General: cooperative, healthy appearing, comfortable and no acute distress Orientation/consciousness: patient oriented x3 HEENT Face and sinus: Yes normal facial exam Mouth: moist mucous membranes Neck Neck: Yes normal visual inspection, Yes full ROM and Yes trachea midline Chest Chest palpation & inspection: normal inspection of the chest Resp Effort & Inspection: normal respiratory effort, able to speak in complete sentences and no respiratory distress GI Inspection: Yes normal to inspection Back/Spine/Pelvis Cervical Spine: normal cervical lordosis Thoracic/Lumbar Spine: thoracic and lumbar spine normal to inspection Skin General skin exam: no rashes or lesions noted Neuro General: patient oriented x3, gait normal, tone normal and moves all extremities Extrem General: Yes normal to inspection and Yes capillary refill normal Office Procedures Cystoscopy Consent Discussed risk and benefit or proposed procedure with the patient. Information consent for procedure given to the patient. Discussed technical aspects, risks, benefits and alternatives in full. Addressed all of the patient's questions and concerns regarding the procedure. The patient demonstrated knowledge and understanding. They wish to proceed with this procedure. Preparation The patient was prepped in the usual manner. A anesthesiology resident was present and in the room. Genitalia was prepped with betadine solution in a sterile manner. Lidocaine Jelly 2% was placed into the urethra and 16Fr flexible Olympus cystoscope was inserted into the meatus after adequate lubrication. Procedure Meatus uncircumcised Urethra anterior posterior urethra normal Prostatic Urethra TUR defect with regrowth left side Bladder examination with retroflexion of cystoscope Bladder Orifices normal shape and position Bladder Capacity medium Trabeculations grade 2 Cellule Formation small Diverticulum Formation - Mucosal Erythema diffuse mucosal injection Bladder Tumor - [id number]-[id number] DISPOSABLE SCOPE URO-G FLEXIBLE SCOPE Procedure code (CPT) selection complete Office Meds lidocaine HCl 2 % mucosal jelly in applicator Performing Provider: Kwesi Coreas MD Performing Location: [facility] Administered by: Sabine Fields RN on 03/27/23 15:04 Dose Route Admin Location Dispensed Lot Number Expiration Date NDC Lumber Tying Machine Operator 10 mL intra-urethral 10 mL nitrofurantoin monohydrate/macrocrystals 100 mg capsule Performing Provider: Kwesi Coreas MD Performing Location: [facility] Administered by: Sabine Fields RN on 03/27/23 15:04 Dose Route Admin Location Dispensed Lot Number Expiration Date NDC Lumber Tying Machine Operator 100 mg PO 1 cap naproxen 500 mg tablet Performing Provider: Kwesi Coreas MD Performing Location: [facility] Administered by: Sabine Fields RN on 03/27/23 15:04 Dose Route Admin Location Dispensed Lot Number Expiration Date NDC Lumber Tying Machine Operator 500 mg PO 1 tab Results AMB Urinalysis, Automated UA Leukoctes 0 Bella/uL Last Edit by Noris Franklin CMA on 03/27/23 15:08 UA Nitrite Negative Last Edit by Noris Franklin CMA on 03/27/23 15:08 UA Urobilinogen 0.2 mg/dL Last Edit by Noris Franklin CMA on 03/27/23 15:08 UA Protein 0 mg/dL Last Edit by Noris Franklin CMA on 03/27/23 15:08 UA pH 6.0 Last Edit by Noris Franklin [employer] on 03/27/23 15:08 UA Blood 0 Malachi/uL Last Edit by Noris Franklin [facility] on 03/27/23 15:08 UA Specific Hopkins 1.025 Last Edit by Noris Franklin CMA on 03/27/23 15:08 UA Ketone Negative Last Edit by Noris Franklin CMA on 03/27/23 15:08 UA Bilirubin 0 mg/dL Last Edit by Noris Franklin CMA on 03/27/23 15:08 UA Glucose 0 mg/dL Last Edit by Noris Franklin [facility] on 03/27/23 15:08 Results Reviewed Results Reviewed: Laboratory Last Values Urine pH (Auto) 6.0 03/27/23 15:00 Specific Hopkins (Auto) 1.025 03/27/23 15:00 Urine Protein (Auto) 0 mg/dL 03/27/23 15:00 Glucose (UA)(Auto) 0 mg/dL 03/27/23 15:00 Urine Ketones (Auto) Negative 03/27/23 15:00 Urine Blood (Auto) 0 Malachi/uL 03/27/23 15:00 Urine Nitrite (Auto) Negative 03/27/23 15:00 Urine Bilirubin (Auto) 0 mg/dL 03/27/23 15:00 Urine Urobilinogen (Auto) 0.2 mg/dL 03/27/23 15:00 Leukocyte Esterase (Auto) 0 Bella/uL 03/27/23 15:00 Assessment & Plan Assessment & Plan (1) Overactive bladder: Code(s): N32.81 - Overactive bladder (2) Nocturia: Code(s): R35.1 - Nocturia (3) Bladder outlet obstruction: Code(s): N32.0 - Bladder-neck obstruction Plan Increased tadalafil dose 10 mg daily Reassess may benefit from prostate incision Orders: Orders AMB Urinalysis Automated Today Z13.9 - Encounter for screening, unspecified AMB Cystoscopy Today N32.0 - Bladder-neck obstruction Medications: Changed From tadalafil (Cialis) [id number] [facility] [place] [id number] Member [id number] 5 mg PO DAILY 90 days 90 tabs 3RF N32.81 - Overactive bladder To tadalafil 10 mg PO DAILY 90 tabs 0RF 90 days N32.81 - Overactive bladder Patient Instructions: Imaging studies, laboratory and physical exam results were discussed and reviewed in detail. No major barriers to patient understanding were identified. An opportunity to ask questions regarding the treatment plan was provided. All questions were answered. The patient expressed understanding and agreement with the above treatment plan. The patient is aware they should contact our office by phone for worsening of their current condition or the appearance of new urologic symptoms. Compliance is encouraged with any medications and followup testing that is ordered. It is a privilege to participate in the urologic care of your patient. If you have any questions or concerns regarding treatment for the above conditions, or other urologic issues, please do not hesitate to contact me. The office telephone contact is [phone]. This note is constructed using voice recognition software. While every effort has been made to ensure accuracy food processing chemist errors may have been included. Yours sincerely, Dr Kwesi Coreas MD, [facility] - Urology Providers of Expert, Compassionate Care for the Genitourinary System Coding Level of Care Code Est Pt Level 4 (93154) Diagnoses Overactive bladder N32.81 Nocturia R35.1 Bladder outlet obstruction N32.0 CPT Codes Cystoscopy - CPT: 36029-[id number] ([id number])
== END 2023-03-27 15:29 | disposition home or self-care (01) ==
PROVIDERS: PCP Internal Medicine Geriatric Medicine; Visit Provider Urology
DX: N32.81 Overactive bladder (principal); R35.1 Nocturia; N32.0 Bladder-neck obstruction; Z13.9 Encounter for screening, unspecified
CPT/HCPCS: 52000; 99214

== ENCOUNTER → 2023-03-27 14:25 | Outpatient (BNVA) | payer MEDICARE, MEDICAID, SELFPAY | PROVIDERS: PCP Internal Medicine Geriatric Medicine; Visit Provider Urology | DX: N32.81 Overactive bladder (principal); R35.1 Nocturia; N32.0 Bladder-neck obstruction | CPT/HCPCS: 52000; 81003; 99212 ==

== ENCOUNTER 2023-03-29 10:58 | Outpatient (REF) | payer MEDICARE, MEDICAID, SELFPAY ==
[2023-03-29 13:46] LABS: Alanine Aminotransferase 20 U/L (0-40); Albumin Level 4.2 g/dL (3.5-5.0); Alkaline Phosphatase 65 U/L (39-117); Anion Gap 13 (12-20); Aspartate Amino Transferase 17 U/L (5-37); Bilirubin Total 0.9 mg/dL (0.0-1.0); Blood Urea Nitrogen 15 mg/dL (9-16); Calcium 9.6 mg/dL (8.4-10.2); Carbon Dioxide 27 mmol/L (22-29); Chloride 106 mmol/L (96-108); Cholesterol 188 mg/dL (<200); Estimated Glomerular Filt Rate > 60; Glucose Random 100 mg/dL (60-115); HDL Cholesterol 38 mg/dL (>40); LDL Cholesterol Calculated 111 mg/dL (<100); Potassium 4.3 mmol/L (3.3-5.1); Sodium 142 mmol/L (135-145); Total Protein 7.6 g/dL (6.5-8.0); Triglycerides 196 mg/dL (<150)
== END 2023-03-29 10:59 | disposition home or self-care (01) ==
LOC: HO.HHCL 10:58
PROVIDERS: Visit Provider Internal Medicine Geriatric Medicine
DX: I10 Essential (primary) hypertension (principal); E78.00 Pure hypercholesterolemia, unspecified
CPT/HCPCS: 36415; 80053; 80061

== ENCOUNTER 2023-05-28 15:25 | Outpatient (AMB) | payer MEDICARE, MEDICAID, SELFPAY ==
--- NOTE | 2023-05-28 15:29 | A.OFFVIS_ITS ---
Intake Intake Visit Reasons: 2m/PVR Intake Note: Patient is Present for Follow Up Urology Medication: Vitamin B6, Terazosin, Tadalafil Antibiotic Allergies: None Blood Thinners: None PVR: 30 Procurement Clerk Required: Yes Procurement Clerk Language: Kyrgyz Allergies No Known Allergies [No Known Allergies*] Allergy (Verified 05/28/23 15:33) Medication List - Last Reconciled 05/28/23 by Kwesi Coreas MD amlodipine 5 mg PO DAILY atorvastatin 20 mg PO DAILY hydrochlorothiazide 12.5 mg PO DAILY ketoconazole 2% topical losartan 100 mg PO DAILY losartan-hydrochlorothiazide 100-12.5 mg 1 tab PO DAILY metoprolol succinate ER 25 mg PO DAILY pyridoxine (vitamin B6) 100 mg PO DAILY 90 days tadalafil 10 mg PO DAILY 90 days terazosin 10 mg (2 x 5 mg) PO BEDTIME 30 days HPI HPI Comments History of Present Illness Details Oren is a very pleasant male. He is a patient of Dr Herrera. He is seen for the following urologic conditions. - lower urinary tract symptoms - nephrolithiasis Kyrgyz translation provided in office by qualified medical dir Here for follow-up after 10 mg tadalafil daily Previously injected bladder mucosa Prior discussion of TUIP Thinks he has had good response with decreased urgency and frequency Feeling substantially improved Would like to continue 10 mg daily tadalafil Lower urinary tract symptoms Primarily nocturia with weakness of stream Minimal benefit from 5 mg terazosin Prior medications include Flomax with minimal improvement Describes prior procedure in [place] with biopsy for abnormal BEATRICE and question of hydrodistention versus TURP Renal bladder ultrasound notes prostate measures 17 cc with calcifications PSA 11/24 2.2 Cystoscopy 03/27 possible interstitial cystitis Erectile dysfunction Improved with low-dose Cialis daily Nephrolithiasis/Urolithiasis: Discussed current ultrasound Keep on vitamin B6 and keep up water intake Translation done office The patient previously had kidney stones whose composition w unknown. Prior treatment(s) include observation. Prior imaging includes 09/19/19 , a CT (computed tomography) scan of the abdomen/pelvis (stone protocol) - 5 mm stone at right UPJ plus two calcific foci 10/21 , a renal ultrasound, showing no evidence of stones, bilateral 1 cm cyst - 06/22 left renal ultrasound 2 small sto vinay on right bilateral renal cyst - 12/24 renal ultrasound with no stones, Current therapeutic plan will be to continue with imaging surveillance. [facility] Medical History HTN (hypertension) Hyperlipidemia Recurrent nephrolithiasis Review of Systems Const Denies chills and Denies fever(s) Card Reports no additional complaints and Denies syncope Resp Denies cough GI Denies abdominal pain and Denies heartburn Reports as per HPI and Denies change in libido Neuro Denies syncope Psych Denies change in libido Endo Denies change in libido Physical Exam Const General: cooperative, healthy appearing, comfortable and no acute distress Orientation/consciousness: patient oriented x3 HEENT Face and sinus: Yes normal facial exam Mouth: moist mucous membranes Neck Neck: Yes normal visual inspection, Yes full ROM and Yes trachea midline Chest Chest palpation & inspection: normal inspection of the chest Resp Effort & Inspection: normal respiratory effort, able to speak in complete sentences and no respiratory distress GI Inspection: Yes normal to inspection Back/Spine/Pelvis Cervical Spine: normal cervical lordosis Thoracic/Lumbar Spine: thoracic and lumbar spine normal to inspection Skin General skin exam: no rashes or lesions noted Neuro General: patient oriented x3, gait normal, tone normal and moves all extremities Extrem General: Yes normal to inspection and Yes capillary refill normal Office Procedures Post Void Residual Post Residual Void Post Void Residual (PVR): 30 [id number] Void Residual by ultrasound Assessment & Plan Assessment & Plan (1) Nocturia: Code(s): R35.1 - Nocturia (2) Erectile dysfunction: Code(s): N52.9 - Male erectile dysfunction, unspecified (3) Overactive bladder: Code(s): N32.81 - Overactive bladder Plan Six-month follow-up tele Orders: Orders AMB Post Void Residual by ultrasound Today N32.81 - Overactive bladder Medications: Refilled tadalafil 10 mg PO DAILY 90 tabs 1RF 90 days N32.81 - Overactive bladder Patient Instructions: Imaging studies, laboratory and physical exam results were discussed and reviewed in detail. No major barriers to patient understanding were identified. An opportunity to ask questions regarding the treatment plan was provided. All questions were answered. The patient expressed understanding and agreement with the above treatment plan. The patient is aware they should contact our office by phone for worsening of their current condition or the appearance of new urologic symptoms. Compliance is encouraged with any medications and followup testing that is ordered. It is a privilege to participate in the urologic care of your patient. If you have any questions or concerns regarding treatment for the above conditions, or other urologic issues, please do not hesitate to contact me. The office telephone contact is [phone]. This note is constructed using voice recognition software. While every effort has been made to ensure accuracy frozen foods manager errors may have been included. Yours sincerely, Dr Kwesi Coreas MD, [facility] - Urology Providers of Expert, Compassionate Care for the Genitourinary System Coding Level of Care Code Est Pt Level 4 (40854) Diagnoses Nocturia R35.1 Erectile dysfunction N52.9 Overactive bladder N32.81 CPT Codes Post Residual Void - PVR CPT Code: 78661-Ivhh Void Residual by ultrasound ([id number])
== END 2023-05-28 16:11 | disposition home or self-care (01) ==
PROVIDERS: PCP Internal Medicine Geriatric Medicine; Visit Provider Urology
DX: R35.1 Nocturia (principal); N52.9 Male erectile dysfunction, unspecified; N32.81 Overactive bladder
CPT/HCPCS: 99213

== ENCOUNTER → 2023-05-28 15:25 | Outpatient (BNVA) | payer MEDICARE, MEDICAID, SELFPAY | PROVIDERS: PCP Internal Medicine Geriatric Medicine; Visit Provider Urology | DX: R35.1 Nocturia (principal); R39.12 Poor urinary stream; N52.9 Male erectile dysfunction, unspecified; N32.81 Overactive bladder; Z87.442 Personal history of urinary calculi | CPT/HCPCS: 51798; 99212 ==

== ENCOUNTER 2023-11-19 09:04 | Outpatient (REF) | payer MEDICARE, MEDICAID, SELFPAY ==
[2023-11-19 12:03] LABS: Alanine Aminotransferase 16 U/L (0-40); Albumin Level 4.2 g/dL (3.5-5.0); Alkaline Phosphatase 78 U/L (39-117); Anion Gap 13 (12-20); Aspartate Amino Transferase 17 U/L (5-37); Bilirubin Total 0.5 mg/dL (0.0-1.0); Blood Urea Nitrogen 18 mg/dL (9-16); Calcium 9.5 mg/dL (8.4-10.2); Carbon Dioxide 24 mmol/L (22-29); Chloride 110 mmol/L (96-108); Cholesterol 207 mg/dL (<200); Estimated Glomerular Filt Rate > 60; Glucose Random 106 mg/dL (60-115); HDL Cholesterol 43 mg/dL (>40); LDL Cholesterol Calculated 132 mg/dL (<100); Potassium 3.8 mmol/L (3.3-5.1); Sodium 143 mmol/L (135-145); Total Protein 7.5 g/dL (6.5-8.0); Triglycerides 162 mg/dL (<150)
[2023-11-19 12:26] LABS: HIV AB/AG Nonreactive (Nonreactive); HIV Num 1 0.07 S/CO (0.00-0.99); ~HepC Num1 9.79 S/CO (0.00-0.79); ~Hepatitis C Antibody Reactive (Nonreactive)
[2023-11-20 16:24] LABS: HCV Log PCR <1.18 NOT DETECTED Log IU/mL (NOT DETECTED); HepC Viral Load <15 NOT DETECTED IU/mL (NOT DETECTED)
== END 2023-11-19 09:05 | disposition home or self-care (01) ==
LOC: HO.HHCL 09:04
PROVIDERS: Visit Provider Internal Medicine Geriatric Medicine
DX: I10 Essential (primary) hypertension (principal); E78.00 Pure hypercholesterolemia, unspecified; Z11.4 Encounter for screening for human immunodeficiency virus [HIV]; Z11.59 Encounter for screening for other viral diseases
CPT/HCPCS: 36415; 80053; 80061; 86803; 87389; 87522

== ENCOUNTER 2023-12-22 19:39 | Emergency (ER) | payer MEDICARE, MEDICAID, SELFPAY ==
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
[2023-12-22 19:50] VITALS: BP 142/98; PULSE 93; O2SAT 95
[2023-12-22 19:51] VITALS: BP 151/77; PULSE 90; RESP 18; TEMP 36.6; O2SAT 90
[2023-12-22 20:16] VITALS: BMI 31.6
[2023-12-22 23:05] VITALS: BP 159/81; PULSE 75; RESP 18; TEMP 35.9; O2SAT 95
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
[2023-12-22 23:17] VITALS: BP 159/81; PULSE 75; RESP 18; TEMP 35.9; O2SAT 95
== END 2023-12-22 23:19 | disposition home or self-care (01) ==
PROVIDERS: Emergency Provider Internal Medicine; PCP Internal Medicine Geriatric Medicine
DX: S09.90XA Unspecified injury of head, initial encounter (principal); R51.9 Headache, unspecified; Y04.8XXA Assault by other bodily force, initial encounter; Y93.89 Activity, other specified; Y92.89 Other specified places as the place of occurrence of the external cause; Y99.8 Other external cause status
CPT/HCPCS: 70450; 99284

== ENCOUNTER 2024-05-26 10:50 | Outpatient (REF) | payer MEDICARE, MEDICAID, SELFPAY ==
[2024-05-26 13:59] LABS: Anion Gap 12 (12-20); Blood Urea Nitrogen 17 mg/dL (9-16); Calcium 9.4 mg/dL (8.4-10.2); Carbon Dioxide 26 mmol/L (22-29); Chloride 109 mmol/L (96-108); Estimated Glomerular Filt Rate > 60; Glucose Random 95 mg/dL (60-115); Potassium 3.9 mmol/L (3.3-5.1); Sodium 143 mmol/L (135-145)
[2024-05-26 14:22] LABS: Prostate Specific Antigen 2.21 ng/mL (<0.05-4.0)
== END 2024-05-26 10:51 | disposition home or self-care (01) ==
LOC: HO.HHCL 10:50
PROVIDERS: Visit Provider Internal Medicine Geriatric Medicine
DX: N40.1 Benign prostatic hyperplasia with lower urinary tract symptoms (principal); N13.8 Other obstructive and reflux uropathy; I10 Essential (primary) hypertension; R35.1 Nocturia; Z12.5 Encounter for screening for malignant neoplasm of prostate
CPT/HCPCS: 36415; 80048; 84153

== ENCOUNTER 2024-08-18 15:22 | Outpatient (REF) | payer MEDICARE, MEDICAID, SELFPAY ==
--- OUTSIDE RECORDS SUMMARY | 2024-08-18 17:53 | XMS_ITS | Encounter Summary ---
Author Organization [employer] Address [address] [facility] [address] [place] [address] Care Team Providers Care Lean Manufacturing Coordinator Name Role Phone Name, Jason AGUILA Primary Care Provider [phone] Encounter Details Date Type Department Care Team (Late Contact Info) Description 08/13/2022 Abstract [facility] [address] [place] [address] [phone] Name, MD Jason [address] [place] [id number] Social History Tobacco Use Types Packs/Day Years Used Date Smoking Tobacco: Never Smokeless Tobacco: Never Alcohol Use Standard Drinks/Week Comments Yes 0 (1 standard drink = 0.6 oz pur e alcohol) socially PHQ-2 Answer Date Recorded Patient Health Questionnaire-2 Score 2 04/03/2022 Depression Answer Date Recorded Patient Health Questionnaire-2 Score 2 04/03/2022 Sex and Gender Information Value Date Recorded Sex Assigned at Male 01/01/2022 10:31 AM EDT Legal Sex Male 10:31 AM EDT Gender Identity Male 01/01/2022 10:31 AM EDT Sexual Orientation Choose not to disclose 2021 10:31 AM EDT COVID-19 Exposure Response Date Recorded In the last 10 days, have yo u been in contact with someone who was confirmed or suspected to have Coronavirus/COVID-19? No / Unsure 08/08/2022 2:59 PM EDT documented as of this encounter Plan of Treatment Upcoming Encounters Date Type Department Care Team (Late Contact Info) Description 10/07/2024 2:15 PM EDT Office Visit [facility] [address] [place], [place] [phone] Name, MD Jason [address] [place] [address] documented as of this encounter Procedures Procedure Name Priority Date/Time Associated Diagnosis Comments COLONOSCOPY Routine 04/26/2015 11:02 AM EST documented in this encounter Results * Colonoscopy (04/26/2015 11:02 AM EST) Colonoscopy Normal Normal Narrative Erika Reynaga - 04/26/2015 11:02 AM EST Recommended 10 year follow up us Historical Provider HEALTH MAINTENANCE Final Result documented in this encounter Visit Diagnoses Not on filedocumented in this encounter Care Teams Lean Manufacturing Coordinator Relationship Specialty Start Date End Date Name, MD Jason [facility] [place] [address] PCP - General Family Medicine 09/12/16 documented as of this encounter
== END 2024-08-18 15:23 | disposition home or self-care (01) ==
LOC: HO.SH 15:22
PROVIDERS: Visit Provider Internal Medicine Geriatric Medicine
DX: Z13.89 Encounter for screening for other disorder (principal)

== ENCOUNTER 2024-12-22 10:56 | Outpatient (REF) | payer MEDICARE, SELFPAY ==
--- OUTSIDE RECORDS SUMMARY | 2024-12-22 13:39 | XMS_ITS | Clinical Summary ---
Author Organization [employer] Address [address] [facility] 7[address] [place] [address] Care Team Providers Care Technical Developer Name Role Phone Name, Jason AGUILA Primary Care Provider [phone] Allergies No known active allergies Medications terazosin (Hytrin) 5 MG capsule Take 5 mg by mouth at bedtime. 3 Active Diclofenac Sodium (Voltaren) 1 % gelIndications:Oste oarthritis of knee, unspecified laterality, unspecified osteoarthritis type Apply twice a day to affected knee 100 g 1 4 Active tadalafil (Cialis) 10 MG tablet Take 10 mg by mouth Once per day. 4 Active atorvastatin (Lipitor) 20 MG tabletIndications:H igh cholesterol Take 1 tablet (20 mg) by mouth Once per day. 30 tablet 11 5 05/26/19 26 Active losartan-hydroCHLOR Othiazide (Hyzaar) 100-12.5 MG tabletIndications:E ssential hypertension TAKE 1 TABLET BY MOUTH EVERY DAY IN THE MORNING 30 tablet 5 5 Active amLODIPine (Norvasc) 5 MG tabletIndications:E ssential hypertension TAKE 1 TABLET BY MOUTH EVERY DAY IN THE MORNING 30 tablet 5 5 Active metoprolol succinate XL (Toprol-XL) 25 MG 24 hr tabletIndications:E ssential hypertension TAKE 1 TABLET BY MOUTH EVERY DAY IN THE MORNING 30 tablet 5 5 Active Active Problems Problem Noted Date Diagnosed Date BPH associated with nocturia 11/06/2022 Does use hearing aid 08/08/2022 High cholesterol 04/03/2022 Pityriasis versicolor 01/10/2018 Skin tag 01/10/2018 Impacted cerumen 09/24/2017 Hip pain 04/12/2017 Skin lesion 04/12/2017 Osteoarthritis of knee 01/30/2017 Chronic neck pain 01/30/2017 Decreased hearing 09/13/2016 Essential hypertension 09/13/2016 Knee pain 09/13/2016 Encounters Date Type Department Care Team Description 12/14/2024 10:45 AM EDT Office Visit [facility] [address] [place] [id number] Jason Herrera MD Essential hypertension (Primary Dx); High cholesterol; Encounter for immunization 12/14/2024 Travel 11/12/2024 Refill [facility] [address] [place], [place] [phone] Jason Herrera MD Essential hypertension 10/07/[address] [phone] Jason Herrera MD No Show (Pt no show follow up apt with . Letter to reschedule will be sent out.) from Last 3 Months Immunizations Immunization Administration Dates Next Due Influenza Injectable Quadriv alant Preservative Free IIV4 MDCK 03/11/2020 Influenza injectable quadriv alent IIV4 with preservative 01/30/2017 Influenza injectable quadriv alent preservative free 03/21/2023,04/03/2022,01/12/2019,2017 Influenza, High Dose Seasona l, Preservative Free 12/14/2024 Influenza, seasonal, injecta ble, preservative free 11/11/2023 Pneumococcal Conjugate PCV 20 05/25/2024 TD (adult), 2 Lf tetanus tox oid, preservative free, adsorbed 01/30/2017 Tdap 05/25/2024 Zoster, Recombinant 11/15/2022 Social History Tobacco Use Types Packs/Day Years Used Date Smoking Tobacco: Former Cigarettes Passive Smoke Exposure: Past Smokeless Tobacco: Former Tobacco Cessation:Counseling Given: Not Answered Alcohol Use Standard Drinks/Week Comments Yes 0 (1 standard drink = 0.6 oz pur e alcohol) socially Depression Answer Date Recorded Patient Health Questionnaire-9 Score 0 12/14/2024 Patient Health Questionnaire-9 Score 0 12/14/2024 Last PHQ-9: Questionnaire Data Not on file 1 Housing Stability Answer Date Recorded What is your housing situation today? I have eleanor squires 12/14/[address] you li ve. Do you have problems with any of the following? None of the above 12/14/2024 Food Insecurity Answer Date Recorded Within the past 12 months, y ou worried that your food would run out before you got money to buy more: Never True 12/14/2024 Within the past 12 months,th e food you bought just didn't last and you didn't have enough money to get more: Never True Transportation Answer Date Recorded In the past 12 months, has l ack of transportation kept you from medical appts, meetings, work or from getting things needed for daily living? No 12/14/2024 Utilities Answer Date Recorded In the past 12 months, has t he electric, gas, oil or water company threatened to shut off services in your home? No 12/14/2024 Depression Answer Date Recorded Patient Health Questionnaire-2 Score 0 12/14/2024 Internet Access Answer Date Recorded Internet Access Q1 Yes 12/14/2024 Internet Access Q2 Not on file 12/14/2024 Sex and Gender Information Value Date Recorded Sex Assigned at Male 01/01/2022 10:31 AM EDT Legal Sex Male 10:31 AM EDT Gender Identity Male 01/01/2022 10:31 AM EDT Sexual Orientation Choose not to disclose 2021 10:31 AM EDT Last Filed Vital Signs Vital Sign Reading Time Taken Comments Blood Pressure 141/78 12/14/2024 11:01 AM EDT Pulse 78 12/14/2024 10:47 AM EDT Temperature 36.8 C (98.2 F) 12/14/2024 10:47 AM EDT Respiratory Rate 18 12/14/2024 10:47 AM EDT Oxygen Saturation 94% 12/14/2024 10:47 AM EDT Inhaled Oxygen Concentration - - Weight 102 kg (224 lb 4 oz) 12/14/2024 10:47 AM EDT Height 172.7 cm (5' 8 ) 12/14/2024 10:47 AM EDT Body Mass Index 34.1 12/14/2024 10:47 AM EDT Plan of Treatment Upcoming Encounters Date Type Department Care Team (Late st Contact Info) Description 03/31/2025 2:00 PM EST Office Visit [facility] [address] [place] [address] Diann Stock, OD [address] [place] [address] Health Maintenance Due Date Last Done Comments CT Colonography 1959 FIT 1959 Sigmoidoscopy 1960 Zoster Vaccines (2 of 2) 01/10/2023 11/15/2022 COVID-19 Vaccine ( season) 2024 07/24/2021, 02/14/2021, 06/02/2020, Additional history exists Colonoscopy 04/26/2025 04/26/2015, 04/26/2015 FOBT 09/16/2025 09/16/2024 Alcohol/Substance Use Screening 12/14/2025 12/14/2024 Depression Screening 12/14/2025 12/14/2024, 12/15/19 25 SDOH Screening 12/14/2025 12/14/2024 Tobacco Screening 12/14/2025 12/14/2024 Colorectal Cancer Screening 09/17/2027 FIT DNA/Cologuard 09/17/2027 09/16/2024 Lipid Panel 11/18/2028 11/19/2023, 03/05, 04/04/2022, Additional history exists DTaP/Tdap/Td Vaccines (2 - Td or Tdap) 05/25/2034 05/25/2024, 01/30/2017 RSV Patients and Patients Aged 60 years or older (1 - 1-dose 75+ series) 06/10/2034 Hepatitis C Screening Completed 11/19/2023, 024 Pneumococcal Vaccine: 50+ Years Completed 05/25/2024 Influenza Vaccine Completed 12/14/2024, , 03/21/2023, Additional history exists HIB Vaccines Aged Out No longer eligi ble based on patient's age to complete this topic HPV Vaccines Aged Out No longer eligi ble based on patient's age to complete this topic Hepatitis A Vaccines Aged Out No long er eligible based on patient's age to complete this topic Hepatitis B Vaccines Aged Out No long er eligible based on patient's age to complete this topic IPV Vaccines Aged Out No longer eligi ble based on patient's age to complete this topic Meningococcal B Vaccine Aged Out No l onger eligible based on patient's age to complete this topic Meningococcal Vaccine Aged Out No misa safia eligible based on patient's age to complete this topic RSV under 20 months Aged Out No longe r eligible based on patient's age to complete this topic Rotavirus Vaccines Aged Out No longer eligible based on patient's age to complete this topic Procedures Procedure Name Priority Date/Time Associated Diagnosis Comments HEPATITIS C AB W/REFL TO HCV RNA, QN, PCR Routine 11/19/2023 9:09 AM EDT Need for hepatitis C screening test LIPID PANEL, STANDARD Routine 11/19/2023 9:07 AM EDT High cholesterol HM COLONOSCOPY Routine 04/26/2015 11:02 AM EST from Last 3 Months or Most Recently Relevant to Health Maintenance Results * (ABNORMAL) Hepatitis C Antibody with Reflex to HCV, RNA, Quantitative, Real- Time PCR (11/19/2023 9:09 AM EDT) Hepatitis C Antibody Reactive( A) Nonreactive [facility] Comment:Presumptive evidence of antibodies to HCV. Blood Venous blood specimen / Unknown 11/19/2023 9:09 AM EDT 11/19/2023 11:36 AM EDT us Jason Herrera MD LAB BLOOD ORDERABLES Final Resul t [facility] [address] [place] [phone] * (ABNORMAL) Lipid Panel, Standard (11/19/2023 9:07 AM EDT) Triglycerides 162(H) <150 mg/dL [facility] Comment:Desirable Triglyceri de: less than 150 mg/dLBorderline High Triglyceride 150-199 mg/dLHigh Triglyceride: 200-499 mg/dLVery High Triglyceride: greater than or equal to 5OO mg/dL Cholesterol 207(H) <200 mg/dL [facility] Comment:Desirable Cholestero l: less than 200 mg/dLBorderline High Cholesterol: 200-239 mg/dLHigh Cholesterol: greater than 239 mg/dL LDL Cholesterol Calculated 132(H) <100 mg/dL [facility] Comment:Desirable LDL: less than 100 mg/dLNear Optimal/Above Optimal LDL: 110- 129 mg/dLBorderline High LDL: 130-159 mg/dLHigh LDL: 160-189 mg/dLVery High LDL: greater than or equal to 190 mg/dL HDL Cholesterol 43 >40 mg/dL [facility] Comment:Desirable HDL: great er than 40 mg/dL Note: This HDL assay may give artificially low results in patients with liver disease. Blood Venous blood specimen / Unknown 11/19/2023 9:07 AM EDT 11/19/2023 11:36 AM EDT Jason Name LAB BLOOD ORDERABLES Final Resul t [facility] [address] [place] [phone] * Hm Colonoscopy (04/26/2015 11:02 AM EST) Colonoscopy Normal Normal Narrative Erika Reynaga - 04/26/2015 11:02 AM EST Recommended 10 year follow up Historical Provider HEALTH MAINTENANCE Final Result from Last 3 Months or Most Recently Relevant to Health Maintenance Insurance [address] [address] [place] [address] STANDARD [employer] Care Teams Technical Developer Relationship Specialty Start Date End Date Name, MD Jason [address] [place] [address] PCP - General Family Medicine 09/12/16
--- OUTSIDE RECORDS SUMMARY | 2024-12-22 13:39 | XMS_ITS | Encounter Summary ---
Author Organization [employer] Address [address] [facility] 7t [place] [address] Care Team Providers Care Major Sales Associate Name Role Phone Name, Jason AGUILA Primary Care Provider [phone] Encounter Details Date Type Department Care Team (Latest Contact Info) Description 05/06/2019 Abstract [facility] CONVERSIONS Dental, Provider, DDS Social History Tobacco Use Types Packs/Day Years Used Date Smoking Tobacco: Never Assessed Sex and Gender Information Value Date Recorded Sex Assigned at Male 01/01/2022 10:31 AM EDT Legal Sex Male 10:31 AM EDT Gender Identity Male 01/01/2022 10:31 AM EDT Sexual Orientation Choose not to disclose 2021 10:31 AM EDT documented as of this encounter Plan of Treatment Upcoming Encounters Date Type Department Care Team (Late st Contact Info) Description 03/31/2025 2:00 PM EST Office Visit [facility] [address] [place] [address] Montrell, Diann, OD [address] [place] [address] documented as of this encounter Visit Diagnoses Not on filedocumented in this encounter Care Teams Major Sales Associate Relationship Specialty Start Date End Date Name, MD Jason [address] [place] [address] PCP - General Family Medicine 09/12/16 documented as of this encounter
--- OUTSIDE RECORDS SUMMARY | 2024-12-22 13:39 | XMS_ITS | Encounter Summary ---
Author Organization [employer] Address [address] [facility] 7t [place] [address] Care Team Providers Care Master Scheduler Name Role Phone Name, Jason AGUILA Primary Care Provider [phone] Encounter Details Date Type Department Care Team (Late Contact Info) Description 08/13/2022 Abstract [facility] [address] [place] [address] Name, MD Jason [address] [place] [address] Social History Tobacco Use Types Packs/Day Years [...] Department Care Team (Late Contact Info) Description 03/31/2025 2:00 PM EST Office Visit [facility] [address] [place], [place] [phone] Diann Stock, OD [address] [place] [address] documented as of this encounter Procedures Procedure Name Priority Date/Time Associated Diagnosis Comments COLONOSCOPY Routine 04/26/2015 11:02 AM EST documented in this encounter Results * Hm Colonoscopy (04/26/2015 11:02 AM EST) Colonoscopy Normal Normal Narrative Erika Reynaga - 04/26/2015 11:02 AM EST Recommended 10 year follow up us Historical Provider HEALTH MAINTENANCE Final Result documented in this encounter Visit Diagnoses Not on filedocumented in this encounter Care Teams Master Scheduler Relationship Specialty Start Date End Date Name, MD Jason [address] [place] [address] PCP - General Family Medicine 09/12/16 documented as of this encounter
--- OUTSIDE RECORDS SUMMARY | 2024-12-22 13:39 | XMS_ITS | Encounter Summary ---
Author Organization [employer] Address [address] [facility] [address] [place] [address] Care Team Providers Care Sparmaker Name Role Phone Name, Jason AGUILA Primary Care Provider [phone] Encounter Details Date Type Department Care Team (Latest Contact Info) Description 04/28/2018 Abstract [facility] CONVERSIONS Dental, Provider, DDS Social History Tobacco [...] Description 03/31/2025 2:00 PM EST Office Visit [facility] OPTOMETRY [address] [place] [address] Montrell, Diann, OD [address] [place] [address] documented as of this encounter Visit Diagnoses Not on filedocumented in this encounter Care Teams Sparmaker Relationship Specialty Start Date End Date Name, MD Jason [address] [place] [address] PCP - General Family Medicine 09/12/16 documented as of this encounter
--- OUTSIDE RECORDS SUMMARY | 2024-12-22 13:39 | XMS_ITS | Encounter Summary ---
Author Organization [employer] Address [address] [facility] [address] [place] [address] Care Team Providers Care Consolidation Accountant Name Role Phone Name, Jason AUGILA Primary Care Provider [phone] Reason for Visit * Reason Comments Med Refill Encounter Details Date Type Department Care Team ([facility] st Contact Info) Description 03/10/2024 Refill [facility] [address] [place], [place] [phone] Name, MD Jason [address] [place] [address] Essential hypertension Social History Tobacco Use Types Packs/Day Years Used Date Smoking Tobacco: Never Smokeless Tobacco: Never Alcohol Use Standard Drinks/Week Comments Yes 0 (1 standard drink = 0.6 oz pur e alcohol) socially PHQ-2 Answer Date Recorded Patient Health Questionnaire-2 Score 2 04/03/2022 Housing Stability Answer Date Recorded What is your housing situation today? I have housing today, but I am worried about losing housing in the future 12/28/[address] you li ve. Do you have problems with any of the following? None of the above 12/28/2022 Food Insecurity Answer Date Recorded Within the past 12 months, y ou worried that your food would run out before you got money to buy more: Never True 12/28/2022 Within the past 12 months,th e food you bought just didn't last and you didn't have enough money to get more: Never True Transportation Answer Date Recorded In the past 12 months, has l ack of transportation kept you from medical appts, meetings, work or from getting things needed for daily living? Yes, it has kept me from medical appointments or getting medications. 12/14/2022 Utilities Answer Date Recorded In the past 12 months, has t he electric, gas, oil or water company threatened to shut off services in your home? No 12/28/2022 Depression Answer Date Recorded Patient Health Questionnaire-2 [...] Description 03/31/2025 2:00 PM EST Office Visit [facility] [address] [place] [address] Montrell, Diann, OD [address] [place] [address] documented as of this encounter Visit Diagnoses Diagnosis Essential hypertension Unspecified essential hypertension documented in this encounter Care Teams Consolidation Accountant Relationship Specialty Start Date End Date Name, MD Jason [address] [place] [address] PCP - General Family Medicine 09/12/16 documented as of this encounter
[2024-12-22 18:09] LABS: Alanine Aminotransferase 27 U/L (0-40); Albumin Level 4.5 g/dL (3.5-5.0); Alkaline Phosphatase 75 U/L (39-117); Anion Gap 9 (12-20); Aspartate Amino Transferase 25 U/L (5-37); Blood Urea Nitrogen 18 mg/dL (9-16); Calcium 9.5 mg/dL (8.4-10.2); Carbon Dioxide 27 mmol/L (22-29); Chloride 113 mmol/L (96-108); Cholesterol 198 mg/dL (<200); Estimated Glomerular Filt Rate > 60; HDL Cholesterol 44 mg/dL (>40); Potassium 4.1 mmol/L (3.3-5.1); Sodium 145 mmol/L (135-145); Total Protein 7.5 g/dL (6.5-8.0); Triglycerides 184 mg/dL (<150)
== END 2024-12-22 10:57 | disposition home or self-care (01) ==
LOC: HO.HHCL 10:56
PROVIDERS: PCP Internal Medicine Geriatric Medicine; Visit Provider Internal Medicine Geriatric Medicine
DX: I10 Essential (primary) hypertension (principal); E78.00 Pure hypercholesterolemia, unspecified
CPT/HCPCS: 36415; 80053; 80061